=== PATIENT | female | born 1955 | race Caucasian/White ===

== ENCOUNTER → 2019-09-03 | Outpatient (CLI) | payer BC ==
--- NOTE | 2019-09-03 11:30 | USB ---
Reason for exam: additional evaluation requested from prior study. History: Patient is postmenopausal. Retro-pectoral saline implants in both breasts, 2002. Excisional biopsy of the right breast. Physical Findings: Nurse Summary: bilateral retropectoral implants, all soft, movable, nodular (nurse ts). US Breast BILAT Right complete breast ultrasound includes all four quadrants, the retroareolar region and axilla. Finding demonstrates no cystic or solid lesion seen. Left complete breast ultrasound includes all four quadrants, the retroareolar region and axilla. Finding demonstrates a 7 x 6 x 15mm cystic, hypoechoic lesion at 8 o'clock, trace implant fluid and a 6 x 3 x 4mm oval, cystic lesion at the posterior nipple. Bilateral implants. These results were verbally communicated with the patient and result sheet given to the patient on 09/03/19. ASSESSMENT: Benign, BI-RAD 2 RECOMMENDATION: Follow-up diagnostic mammogram of both breasts.
== END | disposition home or self-care (01) ==
LOC: RADUSWWP 10:31
PROVIDERS: ATTEND Family Medicine
DX: Z12.31 Encounter for screening mammogram for malignant neoplasm of breast (principal)

== ENCOUNTER 2021-10-17 19:17 | Emergency (ER) | payer BC ==
[2021-10-17 19:27] VITALS: BP 119/74; PULSE 78; RESP 16; TEMP 98
--- NOTE | 2021-10-17 19:49 | XR ---
EXAMINATION TYPE: XR ankle complete LT DATE OF EXAM: 10/17/2021 COMPARISON: NONE HISTORY: Foot pain ankle pain TECHNIQUE: 3 views FINDINGS: Ankle mortise is anatomic. I see no fracture nor dislocation. Joint spaces are normal. IMPRESSION: Normal left ankle exam.
--- NOTE | 2021-10-17 19:53 | XR ---
EXAMINATION TYPE: XR foot complete LT DATE OF EXAM: 10/17/2021 COMPARISON: NONE HISTORY: Foot pain TECHNIQUE: 3 views FINDINGS: There is mild hallux valgus. Metatarsals are intact. The toes are intact. I infiltrate is i ntact. IMPRESSION: Negative left foot exam. Mild hallux valgus noted. No fracture seen.
--- NOTE | 2021-10-17 20:19 | ED ---
Lower Extremity Injury HPI - General Chief Complaint: Extremity Injury, Lower Stated Complaint: Left Foot Injury Time Seen by Provider: 10/17/21 20:10 Source: patient, RN notes reviewed Mode of arrival: ambulatory Limitations: no limitations - History of Present Illness Initial Comments: This is a pleasant 65-year-old female presents to emergency department complaining of left foot pain which is exacerbated by palpation and walking. Patient states that he wouldn't mushroom fell onto the top of her left foot. A few hours prior to arrival. Patient denies any paresthesias. No distal or proximal injury. No headache, no fever or chills, no changes in vision or hearing, no sore throat or difficulty with speech, no neck pain, no chest pain or shortness of breath, no abdominal pain, no nausea or vomiting, no changes in urination or bowel movements, no numbness or tingling, no skin rashes or lesions. Past medical, surgical, social, and family history reviewed. - Related Data Allergies Allergy/AdvReac Type Severity Reaction Status Date / Time No Known Allergies Allergy Verified 10/17/21 19:27 Review of Systems ROS Statement: Those systems with pertinent positive or pertinent negative responses have been documented in the HPI. ROS Other: All systems not noted in ROS Statement are negative. Past Medical History Past Medical History: No Reported History History of Any Multi-Drug Resistant Organisms: None Reported Past Surgical History: No Surgical Hx Reported Additional Past Surgical History / Comment(s): ovary right. Past Psychological History: No Psychological Hx Reported Smoking Status: Never smoker Past Alcohol Use History: Daily Past Drug Use History: Marijuana General Exam - General Exam Comments Initial Comments: Patient in no distress. Does not appear to be ill or toxic. Able to ambulate. Limitations: no limitations General appearance: alert Head exam: Present: atraumatic, normocephalic, normal inspection Eye exam: Present: normal appearance, EOMI Neck exam: Present: normal inspection Respiratory exam: Present: normal lung sounds bilaterally. Absent: respiratory distress, wheezes, rales, rhonchi, stridor Cardiovascular Exam: Present: regular rate, normal rhythm, normal heart sounds. Absent: systolic murmur, diastolic murmur, rubs, gallop, clicks GI/Abdominal exam: Present: soft. Absent: tenderness Extremities exam: Present: tenderness (Patient has tenderness to the dorsum of her left foot. No break in skin integrity. No erythema. No crepitus. Pulses are intact. Full range of motion with phalanges, foot, and ankle.), normal capillary refill. Absent: pedal edema, joint swelling, calf tenderness Back exam: Present: normal inspection, full ROM Neurological exam: Present: alert, oriented X3, CN II-XII intact, other (Antalgic gait secondary to left foot pain). Absent: motor sensory deficit Psychiatric exam: Present: normal affect, normal mood Course Vital Signs 10/17/21 19:23 Temperature 98.0 F Pulse Rate 78 Respiratory 16 Rate Blood Pressure 119/74 O2 Sat by Pulse 99 Oximetry Medical Decision Making - Medical Decision Making Soft tissue injury to the left foot. Did discuss the possibility of occult fracture. Discussed RICE therapy. Discussed other conservative measures. Discussed follow-up. Joaquin wrap applied. Distal neurovascular status intact. Patient was told to return to the ER for any signs or symptoms worsen. Told to return immediately if any other problems arise. All questions answered. Treatm ent plan discussed. Patient in agreement Every effort has been made to ensure accuracy of this dictation. However, due to the limitations of electronic medical records and dictation devices, errors in charting still occur. I did review the x-rays myself. No evidence of acute pathology. Structural Drafter Dr. Beltrán Disposition Clinical Impression: Contusion of left foot, initial encounter, Sprain of foot, left Disposition: HOME SELF-CARE Condition: Good Instructions (If sedation given, give patient instructions): Foot Contusion (ED), Foot Sprain (ED) Additional Instructions: Follow-up with your regular physician as directed. Return to the ER immediately if any symptoms worsen, new symptoms arise, or any other problems develop. Use [id number] acetaminophen and/or ibuprofen for pain control. Apply ice 20 minutes on and off for times daily. Joaquin wrap on and off as directed. Work restrictions as directed. Is patient prescribed a controlled substance at d/c from ED?: No Referrals: Jesse Cleveland MD [STAFF PHYSICIAN] - 10/23/21 Time of Disposition: 20:17
== END 2021-10-17 20:45 | disposition home or self-care (01) ==
LOC: EC 19:17
DX: S93.602A Unspecified sprain of left foot, initial encounter (principal); W20.8XXA Other cause of strike by thrown, projected or falling object, initial encounter
CPT/HCPCS: 99283

== ENCOUNTER → 2022-06-01 | Outpatient (CLI) | payer BC | END | disposition home or self-care (01) | LOC: LABWHC1 08:13 | PROVIDERS: ATTEND Otolaryngology | DX: J30.89 Other allergic rhinitis (principal) | CPT/HCPCS: 36415 ==